=== PATIENT | female | born 1960 | race Caucasian/White ===

== ENCOUNTER 2016-06-11 05:16 | Emergency (ER) | payer BC ==
[~2016-06-11] VITALS: Ht 157.5 cm; Wt 67.8 kg
[~2016-06-11 05:16] MED LIST: ATARAX,VISTARIL25 MG PO; BACTRIM,SEPT1 TABLET PO; CLOPIDOGREL75 MG PO; ESCITALOPRAM OXA5 MG PO; IBUPROFEN600 MG PO; MEDROL DOSEPAK4 MG PO; NAPROSYN500 MG PO; NOHOMEMEDS; OMEPRAZOLE40 M1; OMEPRAZOLE40 M1 PO; POLYTRIM EYE DR10 ML BOTH EYES; PRINZIDE 10-121 EACH; PROAIR HFA8.5 GM IH; PROMETHAZINE HC25 M1 PO; PROVENTIL,2.5 MG/3 M IH; TAMIFLU75 MG PO; TRAMADOL HCL50 MG; TYLENOL WITH C1 EACH PO; ZESTORETIC 20-1 EAC1 PO; ZITHROMAX250 MG PO
[2016-06-11 06:14] LABS: BASOPHIL COUNT 0.1 K/uL (0-0.1); EOSINOPHIL (%) 0.6 % (0-5); EOSINOPHIL COUNT 0.1 K/uL (0-0.3); HEMATOCRIT 43.9 % (36.0-46.0); IMMATURE GRANULOCYTE (%) 0.3 % (0.0-0.7); INSTRUMENT ABS NEUTROPHIL CT 8.5 K/uL; LYMPHOCYTE COUNT 2.1 K/uL (1.0-2.8); MCH 29.1 PG (29.0-34.0); MCHC 32.8 G/DL (30.0-36.0); MCV 88.9 FL (83-99); MONOCYTE (%) 8.5 % (3-12); NEUTROPHIL (%) 72.6 % (45-76); NEUTROPHIL COUNT 8.5 K/uL (1.8-6.4); PLATELET COUNT 251 K/uL (156-360); RBC DIS.WIDTH-CV 13.7 % (11.8-14.6); RBC DIS.WIDTH-SD 44.4 % (39-53); RED BLOOD COUNT 4.94 M/uL (3.80-5.20); WHITE BLOOD COUNT 11.8 K/uL (4.1-10.2)
[2016-06-11 06:21] LABS: CHLORIDE 107 mEq/L (99-109); POTASSIUM 3.5 mEq/L (3.7-5.4); SODIUM 139 mEq/L (136-147)
[2016-06-11 06:23] LABS: GLUCOSE 105 mg/dL (70-99)
[2016-06-11 06:24] LABS: ANION GAP 11 MEQ/L (2-14)
[2016-06-11 06:27] LABS: ALKALINE PHOSPHATASE 105 IU/L (3-129); GFR ESTIMATE (CALCULATED) > 59 mL/min/
[2016-06-11 06:28] LABS: UREA NITROGEN (BUN) 12 mg/dL (9-23)
[2016-06-11 06:30] LABS: LIPASE 10 U/L (1.0-51.0)
[2016-06-11 07:18] LABS: ADD MIUA? YES; BILIRUBIN NEGATIVE; BLOOD SMALL; COLOR YELLOW ((YELLOW)); GLUCOSE (STRIP) NEGATIVE; KETONES 5; LEUKOCYTES NEGATIVE; NITRITE NEGATIVE; PROTEIN (STRIP) NEGATIVE; SPECIFIC GRAVITY 1.016 (1.000-1.030); UROBILINOGEN 0.2 MG/DL (0.2-1.0)
[2016-06-11 07:21] LABS: BACTERIA RARE /HPF; EPITHELIAL CELLS RARE /HPF; MUCUS TRACE /LPF; RED BLOOD CELLS 0-5 /HPF (0-5); UCUL ADDED? NO; WHITE BLOOD CELLS 0-5 /HPF (0-5)
[2016-06-11] MEDS ORDERED: LEVAQUIN750 MG PO (07:35)
[2016-06-11] MEDS ORDERED: FLAGYL500 MG PO (07:35)
[2016-06-11 07:45] VITALS: BP 121/68
== END 2016-06-11 07:48 | disposition home or self-care (01) ==
LOC: EME 05:16
PROVIDERS: Emergency Medicine
DX: K57.32 Diverticulitis of large intestine without perforation or abscess without bleeding (principal); R10.31 Right lower quadrant pain; R11.2 Nausea with vomiting, unspecified; R19.7 Diarrhea, unspecified; J44.9 Chronic obstructive pulmonary disease, unspecified; J45.909 Unspecified asthma, uncomplicated; Z79.02 Long term (current) use of antithrombotics/antiplatelets; Z95.5 Presence of coronary angioplasty implant and graft; F17.200 Nicotine dependence, unspecified, uncomplicated
CPT/HCPCS: 74174; 80053; 81003; 83605; 83690; 85025; 99281; 99285; J2270; J2405; J7030

== ENCOUNTER 2016-10-12 15:59 | Emergency (ER) | payer BC ==
[~2016-10-12] VITALS: Ht 165.1 cm; Wt 62.9 kg
[~2016-10-12 15:59] MED LIST changes: +FLAGYL500 MG PO; +LEVAQUIN750 MG PO
[2016-10-12 16:17] LABS: BASOPHIL COUNT 0.1 K/uL (0-0.1); EOSINOPHIL (%) 1.8 % (0-5); EOSINOPHIL COUNT 0.2 K/uL (0-0.3); IMMATURE GRANULOCYTE (%) 0.7 % (0.0-0.7); IMMATURE GRANULOCYTE COUNT 0.1 K/uL; INSTRUMENT ABS NEUTROPHIL CT 4.9 K/uL; LYMPHOCYTE COUNT 3.4 K/uL (1.0-2.8); MCH 29.3 PG (29.0-34.0); MCV 88.8 FL (83-99); MEAN PLAT.VOLUME 10.8 uM^3 (9.5-12.4); MONOCYTE (%) 9.5 % (3-12); MONOCYTE COUNT 0.9 K/uL (0-0.8); NEUTROPHIL (%) 51.4 % (45-76); NEUTROPHIL COUNT 4.9 K/uL (1.8-6.4); PLATELET COUNT 263 K/uL (156-360); RBC DIS.WIDTH-CV 13.6 % (11.8-14.6); RBC DIS.WIDTH-SD 44.6 % (39-53); RED BLOOD COUNT 5.18 M/uL (3.80-5.20); WHITE BLOOD COUNT 9.5 K/uL (4.1-10.2)
[2016-10-12 16:17] LABS: POINT-OF-CARE METER ID UU14100415
[2016-10-12 16:18] LABS: POTASSIUM 3.5 mEq/L (3.7-5.4)
[2016-10-12 16:22] LABS: PROTHROMBIN TIME 10.8 SEC (10.2-12.9)
[2016-10-12 16:26] LABS: CHLORIDE 107 mEq/L (99-109); POTASSIUM 3.5 mEq/L (3.7-5.4); SODIUM 140 mEq/L (136-147)
[2016-10-12 16:28] LABS: GLUCOSE 89 mg/dL (70-99)
[2016-10-12 16:29] LABS: ANION GAP 12 MEQ/L (2-14)
[2016-10-12 16:30] LABS: TOTAL BILIRUBIN 0.4 mg/dL (0.0-1.0)
[2016-10-12 16:31] LABS: ALKALINE PHOSPHATASE 91 IU/L (3-129); SERUM ETHYL ALCOHOL 211 mg/dL
[2016-10-12 16:32] LABS: GFR ESTIMATE (CALCULATED) > 59 mL/min/
[2016-10-12 16:33] LABS: UREA NITROGEN (BUN) 15 mg/dL (9-23)
[2016-10-12 16:37] LABS: TROP-I INTERPRETATION NEGATIVE; TROPONIN-I < 0.01 ng/mL (0.0-0.30)
[2016-10-12 16:40] LABS: QUANTITATIVE HCG < 4.0 MIU/ML
[2016-10-12 23:32] VITALS: BP 106/60
== END 2016-10-12 23:57 | disposition home or self-care (01) ==
LOC: EME 15:59
PROVIDERS: Emergency Medicine
DX: F10.129 Alcohol abuse with intoxication, unspecified (principal); Y90.7 Blood alcohol level of 200-239 mg/100 ml; I10 Essential (primary) hypertension; J44.9 Chronic obstructive pulmonary disease, unspecified; F32.9 Major depressive disorder, single episode, unspecified; Z79.01 Long term (current) use of anticoagulants; K21.9 Gastro-esophageal reflux disease without esophagitis; Z91.013 Allergy to seafood; Z88.6 Allergy status to analgesic agent; F17.200 Nicotine dependence, unspecified, uncomplicated
CPT/HCPCS: 70450; 71010; 80047; 80053; 82948; 83605; 84484; 84702; 85025; 85610; 87040; 93005; 99281; 99285; G0480; J0456; J0696; J1630; J2060; J7050

== ENCOUNTER 2016-12-08 08:14 | Emergency (ER) | payer BC ==
[~2016-12-08] VITALS: Ht 162.6 cm; Wt 62.3 kg
[2016-12-08] MEDS ORDERED: ROSUVASTATIN CA10 MG PO (08:53)
[2016-12-08] MEDS ORDERED: GABAPENTIN300 MG PO (08:53)
[2016-12-08] MEDS ORDERED: ZESTORETIC 20-1 EAC1 PO (08:54)
[2016-12-08] MEDS ORDERED: BREO ELLIPTA 21 EACH IH (08:54)
[2016-12-08] MEDS ORDERED: VITAMIN D-32000 UNI2 PO (08:55)
[2016-12-08] MEDS ORDERED: VITAMIN B12 PO (08:56)
[2016-12-08 09:42] LABS: EOSINOPHIL (%) 1.3 % (0-5); EOSINOPHIL COUNT 0.1 K/uL (0-0.3); HEMATOCRIT 42.6 % (36.0-46.0); IMMATURE GRANULOCYTE (%) 0.4 % (0.0-0.7); INSTRUMENT ABS NEUTROPHIL CT 6.3 K/uL; LYMPHOCYTE COUNT 2.2 K/uL (1.0-2.8); MCH 29.9 PG (29.0-34.0); MCHC 34.3 G/DL (30.0-36.0); MCV 87.3 FL (83-99); MEAN PLAT.VOLUME 10.6 uM^3 (9.5-12.4); MONOCYTE (%) 9.1 % (3-12); MONOCYTE COUNT 0.9 K/uL (0-0.8); NEUTROPHIL (%) 66.3 % (45-76); NEUTROPHIL COUNT 6.3 K/uL (1.8-6.4); PLATELET COUNT 240 K/uL (156-360); RBC DIS.WIDTH-CV 12.6 % (11.8-14.6); RBC DIS.WIDTH-SD 40.5 % (39-53); RED BLOOD COUNT 4.88 M/uL (3.80-5.20); WHITE BLOOD COUNT 9.5 K/uL (4.1-10.2)
[2016-12-08 09:50] LABS: CHLORIDE 97 mEq/L (99-109); SODIUM 135 mEq/L (136-147)
[2016-12-08 09:53] LABS: GLUCOSE 102 mg/dL (70-99)
[2016-12-08 09:54] LABS: ANION GAP 14 MEQ/L (2-14)
[2016-12-08 09:55] LABS: TOTAL BILIRUBIN 0.5 mg/dL (0.0-1.0)
[2016-12-08 09:56] LABS: ALKALINE PHOSPHATASE 89 IU/L (3-129); GFR ESTIMATE (CALCULATED) > 59 mL/min/
[2016-12-08 09:58] LABS: UREA NITROGEN (BUN) 15 mg/dL (9-23)
[2016-12-08 10:00] LABS: LIPASE 18 U/L (1.0-51.0)
[2016-12-08 11:24] LABS: ADD MIUA? NO; BILIRUBIN NEGATIVE; BLOOD NEGATIVE; COLOR YELLOW ((YELLOW)); GLUCOSE (STRIP) NEGATIVE; KETONES 5; LEUKOCYTES NEGATIVE; NITRITE NEGATIVE; PROTEIN (STRIP) NEGATIVE; UCUL ADDED? NO
[2016-12-08 12:47] VITALS: BP 92/62
== END 2016-12-08 12:49 | disposition home or self-care (01) ==
LOC: EME 08:14
PROVIDERS: Emergency Medicine
DX: R10.9 Unspecified abdominal pain (principal); I10 Essential (primary) hypertension; J44.9 Chronic obstructive pulmonary disease, unspecified; F17.210 Nicotine dependence, cigarettes, uncomplicated; Z88.6 Allergy status to analgesic agent
CPT/HCPCS: 74176; 80053; 81003; 83690; 85025; 99281; 99285; J7030